=== PATIENT | male | born 1945 | race Hispanic/Latino ===

== ENCOUNTER 2018-03-12 06:14 | Emergency (ER) | payer MEDICARE ==
[~2018-03-12] VITALS: Ht 170.2 cm; Wt 74.8 kg
[~2018-03-12 06:14] MED LIST: ATORVASTATIN CA10 MG PO; BACTRIM DS TAB1 EACH PO; GEMFIBROZIL600 MG PO; LISINOPRIL-HCT1 EACH; ROPINIROLE HCL0.5 MG PO; TRAMADOL-ACETAMI1 EA PO
[2018-03-12] MEDS ORDERED: ACETAMINOPHEN 325 MG TAB PO ONE (06:30)
[2018-03-12] MEDS ORDERED: IBUPROFEN 200 MG TAB PO ONE (06:30)
[2018-03-12] MEDS ORDERED: CEFTRIAXONE SOD 1 GM VIAL IV ONE (06:30)
[2018-03-12] MEDS ORDERED: LEVAQUIN250 MG PO (07:01)
[2018-03-12 07:25] VITALS: BP 90/63
== END 2018-03-12 07:30 | disposition home or self-care (01) ==
LOC: FSED 06:14
DX: R30.0 Dysuria (principal); N30.91 Cystitis, unspecified with hematuria; N41.0 Acute prostatitis; N41.9 Inflammatory disease of prostate, unspecified; I10 Essential (primary) hypertension; E78.5 Hyperlipidemia, unspecified
CPT/HCPCS: 80053; 81003; 85025; 87086; 87186; 93005; 99283; J0696